=== PATIENT | female | born 1960 | race Caucasian/White ===

== ENCOUNTER → 2021-11-11 14:48 | Outpatient (BNVA) | payer OTHER, SELFPAY | PROVIDERS: PCP Internal Medicine; Visit Provider Orthopaedic Surgery | DX: Z09 Encounter for follow-up examination after completed treatment for conditions other than malignant neoplasm (principal); M65.312 Trigger thumb, left thumb | CPT/HCPCS: 20550; J1100 ==

== ENCOUNTER 2023-06-09 08:00 | Outpatient (AMB) | payer OTHER, SELFPAY ==
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
== END 2023-06-09 08:18 | disposition home or self-care (01) ==
PROVIDERS: PCP Internal Medicine; Visit Provider Orthopaedic Surgery
DX: M25.562 Pain in left knee (principal)
CPT/HCPCS: 99202

== ENCOUNTER 2023-06-09 14:45 | Outpatient (REF) | payer OTHER, SELFPAY ==
--- NOTE | ~2023-06-09 | XR_ITS ---
EXAMINATION: XR KNEE, LEFT CLINICAL INFORMATION: Pain in left knee. COMPARISON: 07/07/2018 bilateral knees. TECHNIQUE: AP, lateral and sunrise views of the left knee. FINDINGS: Redemonstration of postoperative changes with staple overlying the lateral tibial plateau. Mild medial joint space narrowing. Joint effusion present. Tiny medial and posterior patellar osteophytes. XR/XR knee LT 3V IMPRESSION: 1. Redemonstration of postoperative changes with staple overlying the lateral tibial plateau. 2. Mild degenerative changes. 3. Joint effusion.
== END 2023-06-09 14:46 | disposition home or self-care (01) ==
LOC: HO.HOSX 14:45
PROVIDERS: Visit Provider Orthopaedic Surgery
DX: M25.562 Pain in left knee (principal)
CPT/HCPCS: 73562

== ENCOUNTER 2023-07-15 14:39 | Outpatient (REF) | payer OTHER, SELFPAY ==
--- NOTE | ~2023-07-15 | MR_ITS ---
EXAMINATION: MR KNEE WITHOUT CONTRAST, LEFT CLINICAL INFORMATION: Pain in the left knee. Patient reports prior arthroscopic surgery and prior surgery. COMPARISON: X-ray of the left knee May 2023. TECHNIQUE: MRI of the knee without contrast was performed using routine sequences on a high-field scanner. FINDINGS: MENISCI: Medial Meniscus: Intact. Lateral Meniscus: There is focal intrasubstance signal along the periphery of the posterior horn not extending to the articular surface compatible with grade 2 signal. LIGAMENTS: Cruciate: Intact. Collateral: Intact. EXTENSOR MECHANISM: Intact. ARTICULAR CARTILAGE/BONE: Patellofemoral Compartment: Normal. Medial Compartment: There is a focal 4 x 10 mm area of subchondral abnormal signal with surrounding marrow edema in the peripheral medial weightbearing portion of the medial femoral condyle. Overlying articular cartilage grossly intact. Findings compatible with bone contusion or subchondral fracture, nondisplaced/nondepressed. Articular cartilage normal. Lateral Compartment: Articular cartilage normal. Additional findings include metallic artifact partially limiting evaluation of the proximal tibia and proximal tibiofibular joint. JOINT FLUID AND BURSAE: Trace Quevedo's cyst. MR/MR knee LT wo con IMPRESSION: 1. Bone contusion versus nondisplaced/nondepressed focal subchondral fracture of the medial femoral condyle. 2. Grade 2 signal along the periphery of the posterior horn of the lateral meniscus. 3. Quevedo's cyst.
== END 2023-07-15 14:40 | disposition home or self-care (01) ==
LOC: HO.MRI 14:39
PROVIDERS: PCP Internal Medicine; Visit Provider Orthopaedic Surgery
DX: M25.562 Pain in left knee (principal)
CPT/HCPCS: 73721

== ENCOUNTER 2023-08-05 12:55 | Outpatient (AMB) | payer OTHER, SELFPAY ==
--- NOTE | 2023-08-05 12:56 | MHC.OFFVIS ---
Intake Vital Signs 08/05/23 12:59 Height 5 ft 2 in Weight 105 lb BMI 19.2 Intake Visit Reasons: ov- MRI Knee LT review Intake Note: Mahogany is a 62 year old female who presents for an MRI review of her Left knee. The patient describes her left knee pain as sharp in nature. Most of the pain is along the medial and lateral aspects of her knee. She reports intermittent giving way. She has had injections in the past which gave her minimal relief. She did undergo left knee arthroscopic surgery several years ago. That surgery gave her fairly good relief. She has tried Tylenol and anti-inflammatory medicines as well as oxycodone which gave her minimal relief. Allergies ibuprofen [From MOTRIN] Allergy (Unknown, Verified 08/05/23 12:57) RASH penicillin V Allergy (Unknown, Verified 08/05/23 12:57) Unknown Penicillins [PENICILLINS] Allergy (Unknown, Verified 08/05/23 12:57) RASH Medication List - Last Reconciled 08/05/23 by Prosper Jackson MD oxycodone 20 mg PO PRN oxycodone ER (OxyContin) 60 mg PO BID PFSH Surgical History History of hysterectomy History of arthroscopy of left shoulder History of arthroscopy of right shoulder Hx of arthroscopy of left knee Hx of arthroscopy of right knee Social History Current occupational status: employed Current occupation: Office Physical Exam Vital Signs: BMI result Body Mass Index 19.2 Const Other: Well-nourished well-developed very friendly female awake alert and oriented x3 in no acute distress Extrem Other: Bilateral lower extremity examination shows good capillary refill, no skin lesions noted, normal sensation light touch Left knee examination shows a minimal effusion, minimal crepitus with range of motion, tenderness along her medial and lateral joint lines, positive Brigid's test, no instability Results Reviewed Results Reviewed: MRI of the patient's left knee shows mild diffuse joint space narrowing, a tear of the medial meniscus and possible tearing of the lateral meniscus Assessment & Plan Assessment & Plan (1) Left knee pain: Code(s): M25.562 - Pain in left knee Plan Ms. Santos presents with left knee pain and mechanical symptoms due to a medial meniscus tear and possible lateral meniscus tearing. I had a lengthy discussion with the patient regarding the treatment options. The risks and benefits of left knee arthroscopic surgery were discussed at length with the patient. The patient wishes to think things over. She will contact my office to pick a surgery date if she chooses to do so. That surgery will most likely involve left knee diagnostic arthroscopy with arthroscopic partial medial meniscectomy and possible partial lateral meniscectomy. Otherwise the patient will follow up on an as-needed basis. Feel free to call me at any time should questions regarding her orthopedic management arise. I spent 20 minutes in reviewing the patient's records and imaging studies, seeing the patient and documenting in the medical record. Coding Level of Care Code Est Pt Level 2 (95746) Diagnoses Left knee pain M25.562
[2023-08-05 12:59] VITALS: BMI 19.2
== END 2023-08-05 13:20 | disposition home or self-care (01) ==
PROVIDERS: PCP Internal Medicine; Visit Provider Orthopaedic Surgery
DX: S83.242A Other tear of medial meniscus, current injury, left knee, initial encounter (principal)
CPT/HCPCS: 99213

== ENCOUNTER → 2023-08-05 12:55 | Outpatient (BNVA) | payer OTHER, SELFPAY | PROVIDERS: PCP Internal Medicine; Visit Provider Orthopaedic Surgery ==

== ENCOUNTER 2025-01-26 16:18 | Emergency (ER) | payer OTHER, SELFPAY ==
--- NOTE | ~2025-01-26 | XR_ITS ---
CLINICAL HISTORY: pain, recent surgery 1 view pelvis Comparison: None provided Findings: Status post surgical fusion of the right sacroiliac joint and the pubic symphysis. Appropriate alignment. No evidence of hardware failure. Chronic ossific body superior to the left greater trochanter. Relative increased density of the left inferior pubic ramus. Mild arthritic change. Soft tissues are unremarkable. IMPRESSION: 1. No acute bony injury. 2. Relative increased density of the left inferior pubic ramus may be related to a degree of rotation or a sclerotic bone lesion. This document has been electronically signed by: Claudia Alberts MD on 01/26/2025 17:53:19
[2025-01-26 16:37] VITALS: BP 123/77; PULSE 77; RESP 16; TEMP 36.1; O2SAT 94; BMI 22.3
--- NOTE | 2025-01-26 16:43 | ED_ITS ---
HPI - General Adult General Chief complaint: Wound/Laceration Stated complaint: ? Infection from brayan both hips Time Seen by Provider: 01/26/25 18:18 Source: patient Mode of arrival: ambulatory Limitations: no limitations History of Present Illness ED Provider: eLxy Dial PA-C HPI narrative: 64-year-old female without significant medical history presents to the ED today due to bilateral hip pain. Patient states she had bilateral hip surgery, with incisions closed by brayan done in [place] after tripping over her son's dog and falling. patient states she was referred to orthopedics by her PCP but is not going to be seen in the office until next week. She states the incision sites are uncomfortable, and was supposed to have the baryan out last week. Patient states she is also experiencing B/L groin pain after surgery due to the unique placement of screws in the pelvis and back. Patient is ambulating successfully with crutches, and is not experiencing any weakness with ambulation. patient reports she is going back to [place] the of this month and plans to follow up with her orthopedic surgeon at that time. Denies fever, chills, nausea, vomiting, diarrhea, black / tarry stool, chest pain, shortness of breath, calf pain MD complaint: B/L hip incision pain Onset (ago): month(s) (1) Related Data Home Medications ?Medication ?Instructions ?Recorded ?Confirmed oxycodone 60 mg tablet,crush 60 mg PO BID 11/11/21 resistant,extended release 12 hr (OxyContin) oxycodone 20 mg tablet 20 mg PO PRN pain 08/05/23 0 08/05/23 Previous Rx's ?Medication ?Instructions ?Recorded lidocaine 4 % topical patch 1 patch topical DAILY PRN pain #30 01/26/25 ea methocarbamol 750 mg tablet 750 mg PO QID 5 days #20 t abs 01/26/25 Allergies Allergy/AdvReac Type Severity Reaction Status Date / Time ibuprofen (From MOTRIN) Allergy Unknown RASH Verified 01/26/25 16:41 penicillin V Allergy Unknown Unknown Verified 01/26/25 16:41 Penicillins (PENICILLINS) Allergy Unknown RASH Verified 01/26/25 16:41 Review of Systems 2 Review of Systems: CONST: Negative for fever, body aches and chills. HENT: Negative for neck pain/stiffness, headache, congestion, sore throat, swelling. EYES: Negative for discharge/pain or vision changes. RESP: Negative for cough/hemoptysis and shortness of breath. CV: Negative chest pain, difficulty breathing, palpitations. ABD: Negative pain, nausea, vomiting. : Negative increase frequency, dysuria, blood in urine or stool. MUSC: Negative for muscle aches, edema. SKIN: Negative rash, lesions/sores. POS B/L hip incision irritation NEURO: Negative headache, dizziness, weakness. Yes all other systems are reviewed and are negative [facility] Past Medical History Attestation statement: The following information was validated with the patient. Source: old records reviewed Surgical History History of hysterectomy History of arthroscopy of left shoulder History of arthroscopy of right shoulder Hx of arthroscopy of left knee Hx of arthroscopy of right knee Social History Social History Advance Directives: No Advance Directives Information Provided: No Do you have a plan to hurt others: No Plan Current occupational status: employed Current occupation: Office Physical Exam ED Vital Signs: Vital Signs - 24 hr 01/26/25 16:37 Temperature 96.9 F Pulse Rate 77 Respiratory Rate 16 Blood Pressure 123/77 Pulse Oximetry 94 Oxygen Delivery Method Room Air BMI result Body Mass Index 22.3 GENERAL APPEARANCE: ?AxOx4, generally well-appearing, no acute distress. HEENT: ?NC, AT. MMM. EOMI, clear conjunctiva, oropharynx clear. NECK: ?Supple without lymphadenopathy.? No stiffness or restricted ROM. HEART:? Normal rate and regular rhythm, normal S1/S1, no m/r/g LUNGS:? CTAB, moving air well. No crackles or wheezes are heard. ABDOMEN: ?Soft, nontender, nondistended with good bowel sounds heard. BACK: No CVAT, no obvious deformity. EXTREMITIES: ?Without cyanosis, clubbing or edema. TTP of B/L groin due to surgery, no anatomical abnormalities palpated, no edema, erythema, full ROM of B/L hips NEUROLOGICAL: ?Grossly nonfocal. Alert and oriented, moving all 4 extremities. Observed to ambulate with normal gait. Skin: ?Warm and dry without any rash. B/L hip incisions Well approximated four brayan present on each side, healing nicely, no erythema, no edema, no purulent drainage. Course Course Course Narrative: RME, this is a rapid medical exam performed by Jevon Khalil please refer to primary provider for complete H&P- 64-year-old female presents for evaluation of bilateral hip pain, right greater than left. She reports that she fell and had surgery in [facility] on 12/29/2024. She is concerned that she has infections due to increasing pain. The wounds appear to be healing well with some overlying scab. Plan for basic labs and a pelvic x-ray Medical Decision Making Medical Decision Making MDM Narrative: 64-year-old female without significant medical history presents to the ED today due to bilateral hip pain. Patient states she had bilateral hip surgery, with incisions closed by brayan done in [place] after tripping over her son's dog and falling. patient states she was referred to orthopedics by her PCP but is not going to be seen in the office until next week. She states the incision sites are uncomfortable, and was supposed to have the rbayan out last week. Patient states she is also experiencing B/L groin pain after surgery due to the unique placement of screws in the pelvis and back. Patient is ambulating successfully with crutches, and is not experiencing any weakness with ambulation. patient reports she is going back to [place] the of this month and plans to follow up with her orthopedic surgeon at that time. Patient takes Tylenol intermittently without effect on discomfort, she is allergic to all NSAIDS. VSS, afebrile, in no acute distress, nontoxic appearing. On physical exam there are well-approximated healing incisions of bilateral hips with 4 brayan placed in each side. There is no overlying skin changes, erythema, edema, purulent drainage, warmth. Bilateral groin mildly, diffusely tender to palpation without any bulging or signs of hernia , no overlying skin changes, without lymphadenopathy- inguinal hernia less likely. Abdomen soft, nondistended, nontender. Labs without leukocytosis, WNL. Pelvis x-ray observes hardware of the pelvis intact, without fracture or dislocation. X-ray does show increased density of the left inferior pubic ramus this may be due to a degree of rotation or sclerotic bone lesion. Discussed this finding with patient and counseled her to talk about this with her orthopedic surgeon when she goes back to [place] for further evaluation. I removed 8 brayan in total. One staple had some skin healing over it, scant bleeding with removal. Area was cleaned with sterile saline and gauze, bacitracin applied, and bandage is placed over healing areas. the areas are clean, intact, without overlying skin changes, without purulent drainage, patient without leukocytosis, afebrile. I do not think these areas are infected, I think these areas are irritated due to increased time of brayan in place. I counseled patient to follow up with her PCP for referral to physical therapy for her mild groin pain, and to follow up with her orthopedic surgeon in [place] when she goes back later on this month. To manage pain I will prescribe the patient a 5 day course of muscle relaxer methocarbamol, lidocaine patches, and Tylenol for discomfort. I encouraged the patient to ambulate as much as possible and to do light gentle stretching. Patient is in agreement with the plan. Differential Diagnosis Differential Diagnoses: The differential diagnosis associated with the presentation includes Cellulitis Hardware failure Staple removal Inguinal hernia Admission/Observation Consideration of admission/observation: Escalation of care including admission/observation considered Lab Data MDM Lab Attestation statement: I reviewed the patient's lab results. 01/26/25 18:13 01/26/25 18:13 Labs: Lab Results 01/26/25 Range/Units 18:13 WBC 8.3 (4.8-10.8) X10*3/uL RBC 5.68 H (4.20-5.50) X10*6/uL Hgb 12.4 (12.0-16.0) g/dl Hct 38.8 (37.0-47.0) % MCV 68.3 L (80.0-98.0) fL MCH 21.8 L (27.0-33.0) pg MCHC 32.0 (31.0-35.0) g/dl RDW 15.3 (11.0-16.0) % Plt Count 240 (160-400) X10*3/uL MPV 10.0 (9.4-12.3) fL Immature Gran % (Auto) 0.2 (0.0-0.4) % Neut % (Auto) 48.5 (45-73) % Lymph % (Auto) 41.8 H (20-40) % Bibb % (Auto) 7.5 (2-11) % Eos % (Auto) 1.4 (0-4) % Baso % (Auto) 0.6 (0-2) % Lymph # (Auto) 3.5 (1.2-4.9) X10*3/uL Bibb # (Auto) 0.6 (0.1-1.2) X10*3/uL Eos # (Auto) 0.1 (0.0-0.4) X10*3/uL Baso # (Auto) 0.1 (0.0-0.2) X10*3/uL Abs Immat Gran (auto) 0.02 (0.00-0.03) X10*3/uL Absolute Neuts (auto) 4.0 (2.0-8.3) x10*3/uL Absolute Nucleated RBC 0.000 (0.0-0.012) X10*3/uL Nucleated RBC % (auto) 0.0 (0.0-0.2) /100WBC Sodium 138 (135-145) mmol/L Potassium 4.1 (3.3-5.1) mmol/L Chloride 103 (96-108) mmol/L Carbon Dioxide 29 (22-29) mmol/L Anion Gap 10 L (12-20) BUN 16 (9-16) mg/dL Creatinine 0.65 (0.5-1.4) mg/dL Estim Creat Clear Calc 75.5 Estimated GFR > 60 Random Glucose 72 (60-115) mg/dL Calcium 9.2 (8.4-10.2) mg/dL Independent Interpretation I performed an independent interpretation of an: Plain X-Ray Interpretation: I independently interpreted pelvis x-ray which observes surgical fusion with hardware in place. No fracture or dislocation. I agree with the radiologist's impression Radiology Impression Discussion of test interpretation with radiology: I have reviewed the radiologist's reading. Radiologist Impression: XR Pelvis Findings: Status post surgical fusion of the right sacroiliac joint and the pubic symphysis. Appropriate alignment. No evidence of hardware failure. Chronic ossific body superior to the left greater trochanter. Relative increased density of the left inferior pubic ramus. Mild arthritic change. Soft tissues are unremarkable. IMPRESSION: 1. No acute bony injury. 2. Relative increased density of the left inferior pubic ramus may be related to a degree of rotation or a sclerotic bone lesion. This document has been electronically signed by: Claudia Alberts MD on 01/26/2025 17:53:19 Dictated By: Claudia Alberts MD Signed By: <Electronically signed by Claudia Alberts MD in OV> 01/26/25 2901 External Record Review External record reviewed: Inpatient record, Office record and Outpatient record Prescription Management I considered prescription management with: Other (NSAIDS) patient is urged to NSAIDs and can not take them Discharge Plan Discharge Clinical Impression: Encounter for removal of brayan Patient Disposition: Home, Self-Care Additional Instructions: you were evaluated in the ED today due to bilateral hip pain, groin pain after having surgical fusion of the sacroiliac joint and pubic symphysis On 12/29 in [place]. The incision of bilateral hips are well healing, there is no drainage, no signs of infection. Your labs were reassuring. No sign of infection there either everything was normal. Imaging was done of your pelvis by pelvis x-ray, showed your hardware is intact, appropriately placed, with no fracture or dislocation. You should follow up with your PCP to discuss possible physical therapy to address the tightness and pain of bilateral groin. You should follow up with your orthopedic surgeon in [place] when you go back later on this month. For pain control I will be prescribing you a 5 day course of a muscle relaxer called methocarbamol and lidocaine patches. When using the patches do not place heating pad or ice over them as they can burn your skin. You should use these medications along with taking Tylenol 500 to a 1000 mg every 8 hours to manage her pain. You can also ice the affected areas, and do gentle stretching. Please return to the emergency department if you experience chills, fever over 100.4?, difficulty walking, increased pain of your hip/groin, chest pain, shortness of breath, calf pain, or any other new/ concerning/ worsening symptoms. Prescriptions: New methocarbamol 750 mg tablet 750 mg PO QID 5 Days Qty: 20 0RF lidocaine 4 % adhesive patch,medicated 1 patch topical DAILY PRN (Reason: pain) Qty: 30 0RF No Action oxycodone [OxyContin] 60 mg tablet,oral only,ext.rel.12 hr 60 mg PO BID oxycodone 20 mg tablet 20 mg PO PRN (Reason: pain) Print Language: Thai
[2025-01-26 18:17] LABS: MANUAL DIFF FLAG NO
[2025-01-26 18:20] LABS: Hematocrit 38.8 % (37.0-47.0); Hemoglobin 12.4 g/dl (12.0-16.0); Imm Gran Abs Auto 0.02 X10*3/uL (0.00-0.03); Imm Gran Pct Auto 0.2 % (0.0-0.4); Lymphocytes Absolute Auto 3.5 X10*3/uL (1.2-4.9); Mean Corpuscular HGB Conc 32.0 g/dl (31.0-35.0); Mean Corpuscular Hemoglobin 21.8 pg (27.0-33.0); Mean Corpuscular Volume 68.3 fL (80.0-98.0); NRBC Abs Auto 0.000 X10*3/uL (0.0-0.012); NRBC Pct Auto 0.0 /100WBC (0.0-0.2); Platelet Count 240 X10*3/uL (160-400); Red Blood Count 5.68 X10*6/uL (4.20-5.50); White Blood Count 8.3 X10*3/uL (4.8-10.8)
[2025-01-26 18:35] LABS: Anion Gap 10 (12-20); Blood Urea Nitrogen 16 mg/dL (9-16); Calcium 9.2 mg/dL (8.4-10.2); Carbon Dioxide 29 mmol/L (22-29); Chloride 103 mmol/L (96-108); Creatinine Clr Calc Pharmacy 75.5; Estimated Glomerular Filt Rate > 60; Potassium 4.1 mmol/L (3.3-5.1); Sodium 138 mmol/L (135-145)
[2025-01-26 19:28] VITALS: BP 130/60; PULSE 78; RESP 16; TEMP 36.7; O2SAT 92
[2025-01-26 19:34] VITALS: BP 130/60; PULSE 78; RESP 16; TEMP 36.7; O2SAT 92
== END 2025-01-26 19:35 | disposition home or self-care (01) ==
PROVIDERS: Physician Assistant; Emergency Provider Emergency Medicine Emergency Medical Services; PCP Internal Medicine
DX: G89.18 Other acute postprocedural pain (principal); M25.552 Pain in left hip; M25.551 Pain in right hip; Z48.02 Encounter for removal of sutures
CPT/HCPCS: 36415; 72170; 80048; 85025; 99283; 99284

== ENCOUNTER → 2025-01-26 16:44 | Outpatient (BNV) | payer OTHER, SELFPAY | PROVIDERS: PCP Internal Medicine; Visit Provider Radiology Diagnostic Radiology | DX: R10.2 Pelvic and perineal pain (principal) | CPT/HCPCS: 72170 ==